=== PATIENT | female | born 1930 | race Caucasian/White ===

== ENCOUNTER → 2017-06-07 | Outpatient (REF) | payer MEDICARE ==
[2017-06-08 14:11] LABS: FERRITIN 190 NG/ML (8-252); PERCENT SATURATION 11.4 % (13.2-37.4); TOTAL IRON BINDING CAPACITY 264 UG/DL (250-450)
[2017-06-08 14:15] LABS: VITAMIN B12 LEVEL > 2000 PG/ML
[2017-06-08 14:16] LABS: FOLATE > 24.0 NG/ML
== END ==
LOC: M LAB REF 13:16
PROVIDERS: ATTEND Internal Medicine Nephrology
DX: D64.9 Anemia, unspecified (principal); N39.0 Urinary tract infection, site not specified

== ENCOUNTER 2017-06-30 09:08 | Outpatient (CLI) | payer MEDICARE ==
[~2017-06-30] VITALS: Ht 157.5 cm; Wt 60.5 kg
[2017-06-30] MEDS ORDERED: IRON SUCROSE 25 MG in NS 50 ML IV ONE (10:00)
[2017-06-30] MEDS ORDERED: IRON SUCROSE 475 MG in NS 250 ML IV ONE (11:00)
== END 2017-06-30 14:30 | disposition home or self-care (01) ==
LOC: M INFU 09:08
PROVIDERS: ATTEND Internal Medicine Nephrology
DX: D50.9 Iron deficiency anemia, unspecified (principal); Z88.8 Allergy status to other drugs, medicaments and biological substances; Z79.82 Long term (current) use of aspirin; Z79.899 Other long term (current) drug therapy
CPT/HCPCS: 96365; 96366; J1756